=== PATIENT | male | born 1950 | race Caucasian/White ===

== ENCOUNTER 2017-05-06 10:50 | Inpatient (IN) | payer BC ==
--- NOTE | ~2017-05-06 | HP ---
History And Physical [facility] [address] [place]. [address] NAME: TAVO HERNANDEZ : 54 STATUS : ADM IN [facility]#: [id number] AGE: 66 ADM/REG DATE : 05/06/17 MR#: [id number] REPORT SERV DATE: 05/06/17 DICTATED BY: FRIDA STEEN DATE: 05/06/17 REPORT STATUS : Draft TRANSCRIBED BY: MODL DATE: 05/06/17 DATE OF ADMISSION: 05/06/2017 CHIEF COMPLAINT: Fever, weakness, left foot pain, redness, starting yesterday. HISTORY OF PRESENT ILLNESS: This is a 66-year-old gentleman, very poor historian, who has a past medical history of rheumatoid arthritis, on chronic steroids, depression, anxiety, BPH, hypertension, degenerative joint disease, osteoarthritis. He was seen by Pain Management, patient of Dr. Adama Sparks, primary care provider, presenting today to [facility] mainly because feeling sick and generalized weak, complaining of the left foot and left lower extremity pain, redness, and swelling. It is very important to note that the patient is a very poor historian. He has been on Bactrim, started on the , but he does not take it on a regular basis. However, he is unclear for which he is taking Bactrim, however, since yesterday, he started to experience fever, not feeling well, chills, some diarrhea a couple of days ago, and as a result of the weakness and fever, he came to [facility]. He did not have any chest pain or increasing shortness of breath. No PND or orthopnea. He did not have any nausea or vomiting. No abdominal pain. He said that he had significant decreased appetite and some diarrhea. The patient has been complaining of these left lower extremity redness, swelling, and pain, and as a result, he has decided to come to [facility]. The patient denies any recent hospitalization nor he had any sick contacts. PAST MEDICAL HISTORY: Significant for rheumatoid arthritis, on chronic steroids; history of hypertension; history of depression with anxiety; history of BPH; history of chronic pain due to rheumatoid arthritis. PAST SURGICAL HISTORY: Bilateral total knee replacement and cholecystectomy. SOCIAL HISTORY: He is denying tobacco, alcohol, or IV drugs. FAMILY HISTORY: Significant for dementia and Parkinson disease. ALLERGIES: HE IS ALLERGIC TO PENICILLIN, CEPHALOSPORIN. MEDICATIONS AT HOME: Include albuterol, olsalazine, Symbicort, Voltaren, Benadryl, Cymbalta, Nexium, Osborne, Cozaar, mometasone cream, potassium chloride, prednisone, Flomax, and Bactrim. REVIEW OF SYSTEMS: A 14-point review of systems has been obtained and pertinent positive has been listed into the history of present illness. Otherwise, negative except those underlying above. PHYSICAL EXAMINATION: GENERAL: This is a chronically ill-appearing gentleman, in no acute distress. He is alert and oriented x3. He is nonfocal. He follows all his commands appropriately, but very weak. HEENT: Pupils are equal, round, reactive to light. Extraocular movements intact. No JVD. No lymphadenopathy. No thyromegaly appreciated. History And Physical [address] [address] NAME: TAVO HERNANDEZ : [birth year] STATUS : ADM IN [facility]#: [id number] AGE: 66 ADM/REG DATE : 05/06/17 MR#: [id number] REPORT SERV DATE: 05/06/17 DICTATED BY: FRIDA STEEN DATE: 05/06/17 REPORT STATUS : Draft TRANSCRIBED BY: JIM DATE: 05/06/17 CHEST: Bilateral air entry. Clear anteroposterior. No wheezes, crackles, or rhonchi appreciated. CARDIOVASCULAR: Regular rate and rhythm. S1, S2 positive. No S3, no S4. No murmurs, rubs, or gallops appreciated. ABDOMEN: Soft with positive bowel sounds. Nontender. No guarding. No rebound. EXTREMITIES: No clubbing. No cyanosis. There is some edema in left foot and left lower extremity erythema. No ulcer, but there are significant onychomycosis on the bilateral lower extremities. SKIN: Warm to touch. NEUROLOGIC: The patient is alert and oriented x3. He is nonfocal. He follows all his commands appropriately. LABORATORY DATA: Labs from today include sodium of 136, potassium 3.5, chloride 103, CO2 of 25, BUN 15, creatinine 1.04, glucose is 88. Total protein is 6.5, albumin 2.5, globulin 4, total bilirubin is 1, alkaline phosphatase 123, ALT 10, AST 11. His troponin-I is less than 0.02. Lactate is 1.5. White count is 11.7, hemoglobin is 11.8, hematocrit 36.4, platelets are 162. His INR is 1.2. His blood cultures currently are pending. The chest x-ray portable performed in the emergency room shows no acute cardiopulmonary abnormalities that could be identified, and stable increased venous vascularity, no edema, low lung volumes. ASSESSMENT: This is a 66-year-old gentleman with 1. Likely left lower extremity cellulitis with sepsis on an immunocompromised patient. 2. History of rheumatoid arthritis, on chronic steroids. 3. Hypotension secondary to sepsis. 4. History of benign prostatic hyperplasia. 5. History of depression and anxiety. 6. Chronic pain syndrome, on pain management. PLAN: 1. The patient is going to be admitted to ICU. We are going to place him on vigorous IV hydration and pressors as is indicated. Start him on Levaquin and vancomycin. Panculture him. Munguia catheter. Bedrest. Strict I's and O's. Strict daily weights. We will get an x-ray of the left lower extremity, bilateral venous duplex ultrasound to rule out DVT, as well as a CT scan of the left lower extremities in the morning. Supportive care. Pain and nausea control. 2. Hypotension secondary to above. We will place a Munguia catheter. UA, urine culture, blood cultures, empiric antibiotics as well. We will give him stress doses of steroids. Check a serum cortisol level. 3. History of rheumatoid arthritis, on chronic steroids. We are going to give him stress doses of steroids. 4. Hypertension. We are going to hold his medications currently. 5. We are going to provide reasonable pain and nausea control as well as GI and DVT prophylaxis. That has been discussed extensively with the patient. All the questions have been answered in full. Further workup and recommendation pending above. It is worthwhile to note that the patient is going to be followed up in the ICU by Dr. Calvillo with whom I talked personally. History And Physical [address] [place] [place] [address] NAME: TAVO HERNANDEZ : 54 STATUS : ADM IN [facility]#: [id number] AGE: 66 ADM/REG DATE : 05/06/17 MR#: [id number] REPORT SERV DATE: 05/06/17 DICTATED BY: FRIDA STEEN DATE: 05/06/17 REPORT STATUS : Draft TRANSCRIBED BY: MODL DATE: 05/06/17 CF/MODL Frida Steen M.D. / [id number] CC: DO Bridger Amezcua M.D.
--- NOTE | ~2017-05-06 | DS ---
Discharge Summary [facility] [address] [place]. [address] NAME: TAVO HERNANDEZ : 54 STATUS : DIS IN PAT#: [id number] AGE: 66 ADM/REG DATE : 05/06/17 MR#: [id number] REPORT SERV DATE: 05/08/17 DICTATED BY: EFRAIN SHARPE DATE: 05/08/17 REPORT STATUS : Draft TRANSCRIBED BY: MODL DATE: 05/08/17 ADMISSION DATE: 05/06/2017 DISCHARGE DATE: 05/08/2017 ADMISSION DIAGNOSES: Cellulitis, sepsis, shock, rheumatoid arthritis, and hypertension. DISCHARGE DIAGNOSES: Cellulitis, sepsis, shock, rheumatoid arthritis, and hypertension. HOSPITAL COURSE: The patient was admitted to the intensive care unit and was started on Levaquin and vancomycin. He had a quick recovery with hypotension and mental status was normal. No significant anemia. Kidney function continued to improve from a creatinine of 1.04 to 0.8. He did have hypoalbuminemia, however. Negative troponins. Overall, the patient was back to his normal self, the cellulitis on his leg significantly improved. In discussion with the patient, he had a followup appointment with his primary care physician and Podiatry in about a week. It was felt that the cellulitis may have come from his underlying poor podiatry diabetic foot and in the setting of chronic steroids. His hemoglobin A1c, however, was 5.3. DISPOSITION: The patient is to be discharged home, no changes in his medications other than the patient is on levofloxacin and has followup appointment with his primary care physician and Podiatry according to the patient. He was discharged home from the intensive care unit, son came to pick him up. The patient felt that he had the strength to get around at home in normal health. DICTATED BY: Efrain Sharpe MD HFQ/JIM Efrain Sharpe MD / [id number] CC: DO Bridger Amezcua M.D.
[~2017-05-06 10:50] MED LIST: BENICAR HCT1 TAB PO; COZAAR100 MG PO; CYMBALTA30 PO; CYMBALTA60 PO; DURA25 TOP; FLOMAX4 PO; FORTICAL200 MG/ACT NAS; KLONO1 PO; KLONO5 PO; LORTAB10 PO; NEXIUM40 PO; P5 PO; PRILO PO; ZYRTEC ALLGY10 MG PO
[2017-05-06] MEDS ORDERED: CYMBALTA60 PO (11:31)
[2017-05-06] MEDS ORDERED: COZAAR100 MG PO (11:31)
[2017-05-06] MEDS ORDERED: ELOCON CREAM 0.15 GM TOP (11:32)
[2017-05-06] MEDS ORDERED: P5 PO (11:33)
[2017-05-06] MEDS ORDERED: BACDS PO (11:33)
[2017-05-06] MEDS ORDERED: NORCO1 TAB PO (11:34)
[2017-05-06] MEDS ORDERED: KLOR-CON M1010 MEQ PO (11:34)
[2017-05-06] MEDS ORDERED: FLOMAX4 PO (11:35)
[2017-05-06] MEDS ORDERED: ALBUTEROL0.083 % INH (11:35)
[2017-05-06] MEDS ORDERED: NEXIUM40 PO (11:36)
[2017-05-06] MEDS ORDERED: ASTELIN NAS (11:37)
[2017-05-06] MEDS ORDERED: VOLTAREN1 % TOP (11:37)
[2017-05-06] MEDS ORDERED: [UNRECOGNIZED DRUG - OTHER] PO (11:39)
[2017-05-06] MEDS ORDERED: SYMBICORT 160/41 INH INH (11:40)
[2017-05-06] MEDS ORDERED: BEN25 PO (11:41)
[2017-05-06 11:53] LABS: BASOPHILS 0.1 %; BASOPHILS ABSOLUTE 0.01 10/3/uL (0.0-0.16); EOSINOPHILS 0.1 %; EOSINOPHILS ABSOLUTE 0.01 10/3/uL (0.0-0.53); HEMATOCRIT 36.7 % (40.0-51.0); HEMOGLOBIN 11.8 g/dL (13.6-17.8); IMMATURE GRANULOCYTES 0.2 %; IMMATURE GRANULOCYTES ABSOLUTE 0.02 10/3/uL (0.0-0.11); MANUAL DIFF NO %; MEAN CORPUS HGB CONC 32.2 g/dL (32.0-36.0); MEAN CORPUSCULAR HEMOGLOB 24.6 pg (26.0-34.0); MEAN CORPUSCULAR VOLUME 76.5 fL (80-100); MEAN PLATELET VOLUME 8.5 fL (9.2-13.0); MONOCYTES 3.8 %; MONOCYTES ABSOLUTE 0.44 10/3/uL (0.21-1.20); NEUTROPHILS 89.8 %; NEUTROPHILS ABSOLUTE 10.55 10/3/uL (2.02-8.40); PLATELET COUNT 162 10/3/uL (150-400); RBC DISTRIBUTION WIDTH 16.2 % (12.0-16.0); WHITE BLOOD CELLS 11.7 10/3/uL (4.5-10.5)
[2017-05-06 12:00] LABS: INTERNATIONAL NORMAL RATI 1.2 UNITS (-); PARTIAL THROMBO TIME 28.1 SEC (22.5-37.2); PROTIME (NOT ORD) 14.8 SEC (12.0-14.5)
[2017-05-06] MEDS ORDERED: L40 PO (12:04)
[2017-05-06] MEDS ORDERED: GLUCXL10 PO (12:04)
[2017-05-06] MEDS ORDERED: NEUR300 PO (12:05)
[2017-05-06] MEDS ORDERED: CENTRUM PO (12:06)
[2017-05-06 12:07] LABS: A/G RATIO 0.6 (0.7-1.9); ALBUMIN 2.5 G/DL (3.5-5.0); ALKALINE PHOSPHATASE 123 U/L (45-117); CALCIUM, SERUM 8.2 MG/DL (8.5-10.4); CHLORIDE, SERUM 103 MMOL/L (96-112); CO2 (CARBON DIOXIDE) 25 MMOL/L (24-34); CREATININE 1.04 MG/DL (0.70-1.30); GFR AFRICAN AMERICAN 88 ML/MIN (>=60); GFR NON AFRICAN AMERICAN 76 ML/MIN (>=60); GLUCOSE, SERUM 88 MG/DL (60-99); POTASSIUM, SERUM 3.5 MMOL/L (3.5-5.3); SGOT(AST) 11 U/L (5-40); SGPT(ALT) 10 U/L (5-65); SODIUM, SERUM 136 MMOL/L (135-148); TOTAL PROTEIN 6.5 G/DL (6.0-8.5); TROPONIN I <0.02 NG/ML (<0.05)
[2017-05-06 12:08] LABS: BUN (BLOOD UREA NITROGEN) 15 MG/DL (6-23); LACTATE 1.5 MMOL/L (0.3-2.4)
[2017-05-06 12:14] LABS: ANISOCYTOSIS 1+ (5-10/OIF) (0-5/OIF); BAND NEUTROPHILS 16 %; ELLIPTOCYTES 1+ (3-10/OIF) (0-2/OIF); ER DIFF TAT 0 Hrs 25 Mins; HYPOCHROMIA 1+ (3-10/OIF) (0-2/OIF); LYMPHOCYTES 7 %; LYMPHOCYTES ABSOLUTE (CALC) 0.82 10/3/uL (0.67-4.30); MICROCYTES 1+ (5-10/OIF) (0-5/OIF); MONOCYTES 5 %; MONOCYTES ABSOLUTE (CALC) 0.59 10/3/uL (0.21-1.20); PLATELET ESTIMATE ADQ (ADEQUATE); SEGMENTED NEUTROPHIL (0) 72 %; TOTAL NUCLEATED CELLS 100
[2017-05-06 12:18] LABS: B NATRIURETIC PEPTIDE (BNP) 421.3 PG/ML (< 100.0)
[2017-05-06 18:21] LABS: PHOSPHORUS, SERUM 2.6 MG/DL (2.5-4.5)
[2017-05-06 18:25] LABS: ACETAMINOPHEN LEVEL (TYLENOL) < 2.0 MCG/ML (10.0-20.0); ALCOHOL < 10 MG/DL (0); SALICYLATE < 1.7 MG/DL (-)
[2017-05-06 18:53] LABS: ASCORBIC ACID (UR NOT ORDER) NEG (NEG); BILIRUBIN, URINE NEGATIVE (NEG); KETONE, URINE NEGATIVE (NEG); LEUKOCYTE ESTERASE(NOT OR NEG (NEG); WBC (NOT ORDERED) (RFLEX) 1 (0-5)
[2017-05-07 04:59] LABS: BASOPHILS 0.1 %; BASOPHILS ABSOLUTE 0.01 10/3/uL (0.0-0.16); EOSINOPHILS 0 %; HEMATOCRIT 33.8 % (40.0-51.0); HEMOGLOBIN 10.9 g/dL (13.6-17.8); IMMATURE GRANULOCYTES 0.4 %; IMMATURE GRANULOCYTES ABSOLUTE 0.03 10/3/uL (0.0-0.11); LYMPHOCYTES 6.9 %; LYMPHOCYTES ABSOLUTE 0.56 10/3/uL (0.67-4.30); MEAN CORPUS HGB CONC 32.2 g/dL (32.0-36.0); MEAN CORPUSCULAR HEMOGLOB 24.4 pg (26.0-34.0); MEAN CORPUSCULAR VOLUME 75.8 fL (80-100); MEAN PLATELET VOLUME 9.1 fL (9.2-13.0); MONOCYTES 4.4 %; MONOCYTES ABSOLUTE 0.36 10/3/uL (0.21-1.20); NEUTROPHILS 88.2 %; NEUTROPHILS ABSOLUTE 7.19 10/3/uL (2.02-8.40); RBC DISTRIBUTION WIDTH 16.5 % (12.0-16.0); RED CELL COUNT 4.46 10/6/uL (4.7-6.1); WHITE BLOOD CELLS 8.2 10/3/uL (4.5-10.5)
[2017-05-07 05:00] LABS: MANUAL DIFF NO %; PLATELET COUNT 108 10/3/uL (150-400)
[2017-05-07 05:15] LABS: A/G RATIO 0.5 (0.7-1.9); BUN (BLOOD UREA NITROGEN) 14 MG/DL (6-23); CALCIUM, SERUM 8.1 MG/DL (8.5-10.4); CHLORIDE, SERUM 105 MMOL/L (96-112); CO2 (CARBON DIOXIDE) 23 MMOL/L (24-34); GFR AFRICAN AMERICAN 109 ML/MIN (>=60); GFR NON AFRICAN AMERICAN 94 ML/MIN (>=60); GLOBULIN 3.8 G/DL (2.5-4.1); POTASSIUM, SERUM 3.8 MMOL/L (3.5-5.3); SGOT(AST) 11 U/L (5-40); SGPT(ALT) 8 U/L (5-65); SODIUM, SERUM 135 MMOL/L (135-148); TOTAL BILIRUBIN 0.8 MG/DL (0-1.2); TOTAL PROTEIN 5.8 G/DL (6.0-8.5); TROPONIN I 0.03 NG/ML (<0.05)
[2017-05-07 05:25] LABS: ALKALINE PHOSPHATASE 91 U/L (45-117); GLUCOSE, SERUM 166 MG/DL (60-99)
[2017-05-07 08:29] LABS: GLYCOHEMOGLOBIN (HbA1c) 5.3 % (4.7-6.1)
[2017-05-08] MEDS ORDERED: LEVAQUIN5T PO (12:07)
== END 2017-05-08 15:00 | disposition home or self-care (01) | DRG 871 ==
LOC: ER 10:50 → MIC 14:48
PROVIDERS: Emergency Medicine; Internal Medicine; Internal Medicine Pulmonary Disease
PROC: 02HV33Z Insertion of Infusion Device into Superior Vena Cava, Percutaneous Approach (ICD-10-PCS; principal; 2017-05-06)
PROC: 4A02X4A Measurement of Cardiac Electrical Activity, Guidance, External Approach (ICD-10-PCS; 2017-05-06)
DX: A41.9 Sepsis, unspecified organism (principal); R65.21 Severe sepsis with septic shock; L03.116 Cellulitis of left lower limb; I10 Essential (primary) hypertension; M06.9 Rheumatoid arthritis, unspecified; Z79.52 Long term (current) use of systemic steroids; F32.9 Major depressive disorder, single episode, unspecified; F41.9 Anxiety disorder, unspecified; N40.0 Benign prostatic hyperplasia without lower urinary tract symptoms; Z96.653 Presence of artificial knee joint, bilateral; G47.33 Obstructive sleep apnea (adult) (pediatric); G89.4 Chronic pain syndrome; Z98.890 Other specified postprocedural states; Z88.0 Allergy status to penicillin; Z88.1 Allergy status to other antibiotic agents; Z79.899 Other long term (current) drug therapy; Z79.51 Long term (current) use of inhaled steroids; Z90.49 Acquired absence of other specified parts of digestive tract
CPT/HCPCS: 36569; 71010; 73610-LT; 73700-LT; 80053; 80307; 81001; 82565; 83036; 83605; 83615; 83735; 83880; 84100; 84145; 84439; 84443; 84484; 85025; 85610; 85730; 87040; 87449; 87641; 93005; 93970; 96365; 99285; A9270-GY; C1751; J1720; J1956; J2405; J3370; J3475